=== PATIENT | female | born 1985 | race African-American/Black ===

== ENCOUNTER 2021-01-15 06:02 | Emergency (ER) | payer MEDICAID ==
[~2021-01-15] VITALS: Ht 175.3 cm; Wt 64.0 kg
[2021-01-15 07:55] VITALS: BP 122/86
[2021-01-15 08:08] LABS: EOSINOPHILS % 0.9 % (0.0-5.0); HEMATOCRIT. 34.4 % (36.0-48.0); HEMOGLOBIN. 11.4 g/dL (12.0-16.0); LYMPHOCYTES % 24.8 % (20.0-50.0); MEAN CORPUSCULAR HEMOGLOBIN 28.4 pg (28.0-32.0); MEAN CORPUSCULAR VOLUME 85.5 fL (81.0-99.0); MEAN PLATELET VOLUME 8.1 fl (7.4-10.4); MONOCYTES % 11.2 % (2.0-8.0); NEUTROPHILS % 62.1 % (40.0-76.0); PLATELET 323 x1000/uL (130-400); RED BLOOD CELL COUNT 4.02 mill/uL (4.2-5.4); RED CELL DISTRIBUTION WIDTH 13.5 % (11.6-14.6)
[2021-01-15 08:10] LABS: CLARITY URINE CLEAR (CLEAR); COLOR URINE DK YELLOW (YELLOW); KETONES URINE TRACE (NEGATIVE); LEUKOCYTE ESTERASE URINE NEGATIVE (NEGATIVE); NITRITE URINE NEGATIVE (NEGATIVE); OCCULT BLOOD URINE NEGATIVE (NEGATIVE); PH URINE 5.5 (4.5-8.0); PROTEIN URINE TRACE (NEGATIVE); SPECIFIC GRAVITY URINE 1.036 (1.005-1.030)
[2021-01-15 08:13] LABS: HCG SCREEN NEGATIVE
[2021-01-15 08:14] LABS: CHLORIDE 110 mEq/L (98-107)
[2021-01-15 08:18] LABS: ETHANOL BLOOD < 10 mg/dL
== END 2021-01-15 10:46 | disposition home or self-care (01) ==
LOC: ER 06:02
DX: F15.188 Other stimulant abuse with other stimulant-induced disorder (principal); R10.31 Right lower quadrant pain; R03.0 Elevated blood-pressure reading, without diagnosis of hypertension; J45.909 Unspecified asthma, uncomplicated
CPT/HCPCS: 36415; 80053; 80320; 81003; 81025; 84703; 85025; 99283; G0480

== ENCOUNTER 2023-04-28 09:44 | Emergency (ER) | payer OTHER ==
[~2023-04-28] VITALS: Ht 170.2 cm; Wt 68.0 kg
[2023-04-28 09:45] VITALS: BP 147/97; PULSE 80; RESP 14; O2SAT 100
== END 2023-04-28 10:08 | disposition left against medical advice (07) ==
LOC: ER 09:59
DX: R05.9 Cough, unspecified (principal); Z53.21 Procedure and treatment not carried out due to patient leaving prior to being seen by health care provider
CPT/HCPCS: 99281